=== PATIENT | male | born 2000 | race African-American/Black ===

== ENCOUNTER 2022-06-03 21:28 | Emergency (ER) | payer SELFPAY ==
[~2022-06-03] VITALS: Ht 172.7 cm; Wt 58.0 kg
[2022-06-03] MEDS ORDERED: IBUPROFEN 400MG TABLET PO ONE (23:15)
[2022-06-04] MEDS ORDERED: IBUP-2028 MT (00:42)
[2022-06-04 01:11] VITALS: BP 129/97
== END 2022-06-04 01:07 | disposition home or self-care (01) ==
LOC: ER 21:28
DX: M25.511 Pain in right shoulder (principal); M25.551 Pain in right hip; M25.561 Pain in right knee; V49.49XA Driver injured in collision with other motor vehicles in traffic accident, initial encounter; Y93.89 Activity, other specified; Y92.89 Other specified places as the place of occurrence of the external cause; Y99.8 Other external cause status
CPT/HCPCS: 72170; 73030; 73502; 73552; 73560; 99284